=== PATIENT | male | born 1985 | race Caucasian/White ===

== ENCOUNTER 2016-11-30 22:10 | Emergency (ER) | payer SELFPAY ==
[2016-11-30 22:26] VITALS: BMI 25.0
[2016-11-30 22:29] VITALS: TEMP 97.4
[2016-11-30] MEDS ORDERED: NS 1,000 ML IV ONE (22:29)
[2016-11-30] MEDS ORDERED: MORPHINE 4 MG/ML INJECTION IV ONE (22:29)
[2016-11-30] MEDS ORDERED: PROMETHAZINE 25 MG/ML VIAL IV ONE (22:29)
--- NOTE | 2016-11-30 22:48 | EDPRACDOC ---
- General Information Chief Complaint: Abdominal Pain Stated Complaint: N/V Time Seen by Provider: 11/30/16 22:25 Information Source: Patient Mode Of Arrival: Ambulance Home Medications: Home Medications Ciprofloxacin HCl [Cipro] 500 mg PO BID #20 tab 11/30/16 Ondansetron [Zofran Odt] 4 mg PO Q6H PRN #20 tab.rapdis 11/30/16 - History of Present Illness Onset: 1.5 hrs [employer] HPI: PT PRESENTS WITH DIFFUSE ABDOMINAL PAIN, NAUSEA AND VOMITING. STATES HE HAD A TOOTH PULLED TODAY AND WAS PLACED ON CLINDAMYCIN. STATES HE TOOK A NAP AND WOKE UP WITH THIS PAIN AND VOMITING. Pain Location: Reports: Diffuse Pain Context: Reports: Spontaneous Pain Severity: Moderate Pain Quality: Reports: Sharp, Stabbing Pain Radiation: Reports: No Radiation Adult Abdominal History: Denies: Abdominal Surgery, Urolithiasis, Bowel Obstruction, Similar Pain (dx) Modifying Factors: improves with: Nothing Associated Signs & Symptoms: Reports: Nausea, Vomiting Oral Intake: Decreased Urinary Output: Normal - Treatment Prior to ED Arrival Reported Medications/Treatment [employer] Treated With Medication [employer] YES Medications [employer] (Medication/ zofran 8mg Dose/Time) EMS Treatment BLS IV Yes IV Fluid Volume Administered 300 by EMS ED Past Medical History - History Reviewed Yes Nurses notes reviewed and agree except as marked - Patient Medical History Cardiac History: Denies: Hypertension, Hypercholesterolemia GI/ History: Denies: Gastroesophageal Reflux Psychological History: Denies: Depression Systemic History: Denies: Diabetes - Social Medical History Smoking Status: Heavy tobacco smoker (5 or more cigarettes/day or daily pipe/ cigar) EDM Review of Systems - Review of Systems ROS Negative Except as Marked: Yes All systems reviewed and were negative except as marked - Physical Exam Constitutional: Alert. negative: Well appearing Oriented to: Time, Person, Place Last recorded Vital Signs: Last Vital Signs Temp 97.4 F L 11/30/16 22:25 Pulse 82 11/30/16 23:24 Resp 20 11/30/16 23:24 BP 133/84 11/30/16 23:24 Pulse Ox 97 11/30/16 23:24 Oxygen Pulse Oxygen Saturation 97 O2 Device Room Air Oxygen Flow Rate Fraction of Inspired Oxygen ( FIO2) - HEENT Head: Normal ( normocephalic) Eye Exam: Normal (PERRL, EOMI, Sclera white) Oropharynx: Membranes Dry Tympanic Membrane: Normal Nose: No Symptoms Reported (septum midline) Neck: Normal (FROM, trachea at midline) - Respiratory/Cardiovascular Respiratory: Normal - CTA (BBS clear to auscultation without adventitious sounds ) Cardiovascular: Normal (RRR without murmur, gallop or rub) - GI Auscultation: Normal (NABS) Palpation: Normal (Soft,No rebound or guarding, non distended) Tenderness: Diffuse, Moderate Xiao's Sign: Negative Rectal Exam: Deferred - Musculoskeletal Back: Normal (Non-Tender) Extremities: Normal (Normal tone, Pulses 2+ No cyanosis or edema, FROM) - Integumentary Skin: Normal, Warm, Dry Lymphatics: Normal (no adenopathy) - Neurologic Memory Impaired: Normal Motor Function: Normal (Normal tone, Pulses 2+ No cyanosis or edema, FROM) Cranial Nerve: Normal (CN II-X11 intact sensation, strength 5/5) Cerebellar: Normal Mood Description: Normal Perception: Normal - Differential Diagnosis Constipation, Gastroenteritis, Other - Results All Results Reviewed and Normal except as Highlighted below: Yes 11/30/16 22:54 11/30/16 22:54 WBC 12.1 xk/uL (3.8-10.8) H 11/30/16 22:54 RBC 5.09 xM/uL (4.70-6.10) 11/30/16 22:54 Hgb 14.5 g/dL (14.0-18.0) 11/30/16 22:54 Hct 44.1 % (42-52) 11/30/16 22:54 MCV 87 fL (80-94) 11/30/16 22:54 MCH 28.5 pg (27-32) 11/30/16 22:54 MCHC 33.0 g/dl (33-36) 11/30/16 22:54 RDW 12.9 % (11.5-14.5) 11/30/16 22:54 Plt Count 288 xk/uL (130-400) 11/30/16 22:54 MPV 6.9 fL (7.4-10.4) L 11/30/16 22:54 Neut % (Auto) 66.0 % (45-76) 11/30/16 22:54 Lymph % (Auto) 25.4 % (17-44) 11/30/16 22:54 Faulk % (Auto) 6.9 % (3-10) 11/30/16 22:54 Eos % (Auto) 1.1 % (0-5) 11/30/16 22:54 Baso % (Auto) 0.6 % (0-2) 11/30/16 22:54 Absolute Neuts (auto) 7.99 xk/uL (1.7-8.2) 11/30/16 22:54 Absolute Lymphs (auto) 3.03 xk/uL (0.65-4.75) 11/30/16 22:54 PT 11.1 SEC (9.2-11.2) 11/30/16 22:54 INR 1.1 11/30/16 22:54 APTT 25.3 SEC (22-35) 11/30/16 22:54 Sodium 141 mEq/L (137-146) 11/30/16 22:54 Potassium 4.4 mEq/L (3.5-5.1) 11/30/16 22:54 Chloride 100 mEq/L (98-107) 11/30/16 22:54 Carbon Dioxide 29 mMOL/L (22-33) 11/30/16 22:54 Anion Gap 16 mEq/L (8-16) 11/30/16 22:54 BUN 12 MG/DL (9-20) 11/30/16 22:54 Creatinine 0.80 MG/DL (0.66-1.25) 11/30/16 22:54 Estimated GFR (MDRD) > 60 mL/min (>=60) 11/30/16 22:54 Glucose 99 MG/DL (70-99) 11/30/16 22:54 Calculated Osmolality 271 MOs/Kg (270-290) 11/30/16 22:54 Calcium 9.4 MG/DL (8.4-10.2) 11/30/16 22:54 Total Bilirubin 0.8 MG/DL (0.2-1.3) 11/30/16 22:54 AST 34 IU/L (17-59) 11/30/16 22:54 ALT 40 IU/L (21-72) 11/30/16 22:54 Alkaline Phosphatase 69 IU/L (38-126) 11/30/16 22:54 Creatine Kinase 109 IU/L (55-170) 11/30/16 22:54 Troponin I < 0.01 ng/mL (<.04) 11/30/16 22:54 Wxm-Q-Rwmmjqrvwry Pept 29 pg/mL (0-450) 11/30/16 22:54 Total Protein 7.9 G/DL (6.3-8.2) 11/30/16 22:54 Albumin 4.4 G/DL (3.5-5.0) 11/30/16 22:54 Lab Results 11/30/16 11/30/16 11/30/16 22:54 22:54 22:54 WBC 12.1 H RBC 5.09 Hgb 14.5 Hct 44.1 MCV 87 MCH 28.5 MCHC 33.0 RDW 12.9 Plt Count 288 MPV 6.9 L Neut % (Auto) 66.0 Lymph % (Auto) 25.4 Faulk % (Auto) 6.9 Eos % (Auto) 1.1 Baso % (Auto) 0.6 Absolute Neuts (auto) 7.99 Absolute Lymphs (auto) 3.03 PT 11.1 INR 1.1 APTT 25.3 Sodium 141 Potassium 4.4 Chloride 100 Carbon Dioxide 29 Anion Gap 16 BUN 12 Creatinine 0.80 Estimated GFR (MDRD) > 60 Glucose 99 Calculated Osmolality 271 Calcium 9.4 Total Bilirubin 0.8 AST 34 ALT 40 Alkaline Phosphatase 69 Creatine Kinase 109 Troponin I < 0.01 Puv-E-Osqgcikfyhn Pept 29 Total Protein 7.9 Albumin 4.4 - EKG EKG #1 EKG Time: 22:36 -: Yes EKG interpreted by me Rate: bpm: 77 [place]: Normal Rhythm: NSR Block: None Hypertrophy: None ST: Normal Decision Time to Discharge: 23:36 - Departure Disposition: Home Condition: Stable Final Diagnosis: Abdominal pain Instructions: Acute Abdominal Pain (ED) Education/Counseling Given To: Patient Education/Counseling Given Regarding: Diagnosis, Treatment, Prognosis, Follow Up Referrals: Familia Hollingsworth II, MD [Staff Physician] - One Week Prescriptions: Ciprofloxacin HCl [Cipro] 500 mg PO BID #20 tab Ondansetron [Zofran Odt] 4 mg PO Q6H PRN #20 tab.rapdis PRN Reason: Nausea/Vomiting Additional Instructions: Drink sips of Gatorade every 2-3 minutes while awake. Do NOT drink large volumes of fluid at once. If you vomit, take the nausea-vomiting medicine prescribed, wait ~ 30 minutes, and restart the sipping process. Return to the Emergency Department if you think you are getting dehydrated, have persistent abdominal pain that is unrelenting, have worse or different symptoms, or any concerns.
[2016-11-30 22:59] LABS: AUTOMATED BASOPHIL 0.6 % (0-2); AUTOMATED EOSINOPHIL 1.1 % (0-5); AUTOMATED LYMPH 25.4 % (17-44); AUTOMATED MONOCYTE 6.9 % (3-10); MPV 6.9 fL (7.4-10.4)
[2016-11-30] MEDS ORDERED: Pharmacy Review for Metformin - IV Contrast Given SCH (23:00)
[2016-11-30 23:11] LABS: BLOOD UREA NITROGEN 12 MG/DL (9-20); CALCIUM 9.4 MG/DL (8.4-10.2); CALCULATED OSMOLALITY 271 MOs/Kg (270-290); CHLORIDE 100 mEq/L (98-107); GLUCOSE 99 MG/DL (70-99); SODIUM LEVEL 141 mEq/L (137-146); TOTAL PROTEIN 7.9 G/DL (6.3-8.2)
[2016-11-30 23:12] LABS: CPK TOTAL WITH POSSIBLE MB 109 IU/L (55-170)
[2016-11-30 23:17] LABS: PARTIAL THROMB. TIME 25.3 SEC (22-35); PT-INR 1.1
--- NOTE | 2016-11-30 23:33 | DIRPT ---
CLINICAL DATA: Diffuse pain. Nausea and vomiting. EXAM: CT ABDOMEN AND PELVIS WITH CONTRAST TECHNIQUE: Multidetector CT imaging of the abdomen and pelvis was performed using the standard protocol following bolus administration of intravenous contrast. CONTRAST: 100 cc of Isovue 370 COMPARISON: None. FINDINGS: Lower chest: No pleural or pericardial effusion. Hepatobiliary: No suspicious liver abnormality. The gallbladder appears normal. No biliary dilatation. Pancreas: Normal appearance of the pancreas. Spleen: The spleen is unremarkable. Adrenals/Urinary Tract: Normal appearance of the adrenal glands. The right kidney is normal. The left kidney is also normal. The urinary bladder appears within normal limits. Stomach/Bowel: The stomach is normal. The small bowel loops have a normal course and caliber. The appendix is visualized and appears normal. Unremarkable appearance of the colon. Vascular/Lymphatic: Normal appearance of the abdominal aorta. No enlarged retroperitoneal or mesenteric adenopathy. No enlarged pelvic or inguinal lymph nodes. Reproductive: The prostate gland and seminal vesicles appear normal. Other: No free fluid or fluid collections within the abdomen or pelvis. Musculoskeletal: No worrisome bone abnormalities noted. IMPRESSION: 1. No acute findings identified within the abdomen or pelvis. Electronically Signed By: Connie Velásquez M.D. On: 11/30/2016 23:31
[2016-11-30] MEDS ORDERED: CIPROFLOXACIN HCL 500 MG TAB PO ONE (23:39)
[2016-12-01] VITALS: BP 133/82; PULSE 88
== END 2016-11-30 23:55 | disposition home or self-care (01) ==
LOC: ED 22:10
DX: R10.84 Generalized abdominal pain (principal)
CPT/HCPCS: 36415; 74177; 80053; 82550; 83880; 84484; 85025; 85610; 85730; 93005; 96361; 96374; 96375; 99284; A9698; J2270; J2550; J3490